=== PATIENT | female | born 2000 | race Caucasian/White ===

== ENCOUNTER 2019-03-11 15:34 | Emergency (ER) | payer OTHER ==
[2019-03-11] MEDS ORDERED: FLEXERIL5 M1 PO (16:55)
[2019-03-11 17:00] VITALS: BP 126/88
== END 2019-03-11 17:00 | disposition home or self-care (01) | DRG 552 ==
LOC: ED 15:34
DX: S16.1XXA Strain of muscle, fascia and tendon at neck level, initial encounter (principal); M25.512 Pain in left shoulder; V47.0XXA Car driver injured in collision with fixed or stationary object in nontraffic accident, initial encounter; Y92.414 Local residential or business street as the place of occurrence of the external cause